=== PATIENT | male | born 1990 | race African-American/Black ===

== ENCOUNTER 2019-07-17 09:35 | Emergency (ER) | payer MEDICAID ==
[~2019-07-17] VITALS: Ht 185.4 cm; Wt 97.6 kg
[2019-07-17 09:38] VITALS: BP 135/76
--- NOTE | 2019-07-17 10:25 | NUR ---
TASK RN: PT SEEN BY TEOFILO BECERRA AND PROVIDED W/ RX'S AND DC PAPERWORK.
== END 2019-07-17 10:28 | disposition home or self-care (01) ==
LOC: ED 09:45
DX: Z76.0 Encounter for issue of repeat prescription (principal)
CPT/HCPCS: 99281